=== PATIENT | female | born 1975 | race Caucasian/White ===

== ENCOUNTER → 2025-08-10 20:50 | Outpatient (REF) | payer BC, SELFPAY | LOC: MRI 3T 20:50 | PROVIDERS: ATTENDING PHYSICIAN Physician Assistant Medical | DX: M54.2 Cervicalgia (principal); M48.02 Spinal stenosis, cervical region | CPT/HCPCS: 72141 ==

== ENCOUNTER → 2025-08-23 09:20 | Outpatient (REF) | payer BC, SELFPAY | LOC: PAVMRI 09:20 | PROVIDERS: ATTENDING PHYSICIAN Physician Assistant Medical | DX: M48.062 Spinal stenosis, lumbar region with neurogenic claudication (principal); M54.16 Radiculopathy, lumbar region | CPT/HCPCS: 72148 ==